=== PATIENT | male | born 1950 | race African-American/Black ===

== ENCOUNTER 2016-10-17 17:14 | Emergency (ER) | payer OTHER ==
[2016-10-17 17:19] VITALS: BP 134/65; PULSE 69; TEMP 97.9; BMI 29.5
--- NOTE | 2016-10-17 18:55 | PDOC ---
Attending Attestation - Medical Decision Making 10/20/16 09:34 I agree with the resident's assessment and plan
--- NOTE | 2016-10-17 20:21 | PDOC ---
History of Present Illness - General Chief Complaint: Injury Stated Complaint: LACERATION Time Seen by Provider: 10/17/16 17:50 History Source: Patient Exam Limitations: No Limitations - History of Present Illness Initial Comments: 10/17/16 20:23 Patient is a 65 y.o. male with a PMH of HTN who presents with a 3 finger laceration following catching his finger in a sliding truck door. 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 Patient states there is a sharp pain associated with the wound, however continued to work until 5 p.m. so he could be paid for the day. Patient denies any h/o irregular bleeding, blood clots, fever, vomiting, chest pain or shortness of breath. Past History - Past Medical History Allergies/Adverse Reactions: Allergies Allergy/AdvReac Type Severity Reaction Status Date / Time No Known Allergies Allergy Verified 10/17/16 17:19 Home Medications: Ambulatory Orders Hydrochlorothiazide [Hctz] 12.5 mg PO DAILY 04/01/12 Hydrochlorothiazide [Hctz] 25 mg PO DAILY #0 tablet 04/03/12 Lovastatin 10 mg PO HS #0 tablet 04/03/12 Metoprolol Succinate [Toprol XL -] 25 mg PO DAILY #0 tab.sr.24h 04/03/12 Metoprolol Tartrate [Lopressor -] 25 mg PO DAILY #0 tab 04/03/12 HTN: Yes - Psycho/Social/Smoking Cessation Hx Anxiety: No Suicidal Ideation: No Smoking Status: Yes Smoking History: Current every day smoker Have you smoked in the past 12 months: Yes Number of Cigarettes Smoked Daily: 10 Information on smoking cessation initiated: Yes 'Breaking Loose' booklet given: 10/17/16 Hx Alcohol Use: No Drug/Substance Use Hx: No Substance Use Type: None Hx Substance Use Treatment: No Review of Systems - Review of Systems Constitutional: No: Chills, Diaphoresis, Fever, Malaise HEENTM: No: Blurred Vision, Tinnitus, Hearing Loss, Throat Pain Respiratory: No: Cough, Orthopnea, Shortness of Breath, Wheezing, Hemoptysis Cardiac (ROS): No: Chest Pain, Edema, Lightheadedness, Palpitations ABD/GI: No: Constipated, Diarrhea, Nausea, Vomiting : No: Burning, Dysuria, Frequency, Hematuria Integumentary: No: Bruising, Change in Color, Dryness, Erythema, Pruritus, Rash Neurological: No: Headache, Numbness, Seizure, Tingling Psychiatric: No: Anxiety, Depression Hematologic/Lymphatic: No: Anemia, Blood Clots, Easy Bleeding, Easy Bruising All Other Systems: Reviewed and Negative *Physical Exam - Vital Signs Last Vital Signs Temp Pulse Resp BP Pulse Ox 97.9 F 69 19 134/65 96 10/17/16 17:17 10/17/16 17:17 10/17/16 17:17 10/17/16 17:17 10/17/16 17:17 - Physical Exam General Appearance: Yes: Nourished, Appropriately Dressed HEENT: positive: EOMI Neck: positive: Trachea midline, Supple Respiratory/Chest: positive: Lungs Clear, Normal Breath Sounds Cardiovascular: positive: Regular Rhythm, Regular Rate, S1, S2 Musculoskeletal: positive: Normal Inspection, CVA Tenderness (L) Extremity: positive: Other Integumentary: positive: Other (3 cm length x 0.75 cm width R ventral 3rd digit laceration- no appreciable discharge, odor or erythema) Neurologic: positive: olive grader II-XII NML intact, Fully Oriented, Alert Procedures - Laceration/Wound Repair Right Anterior Finger Wound Length: 2.6 to 5.0 cm Wound Explored: clean, no foreign body present Wound's Depth, Shape: superficial Irrigated w/ Saline: Yes Anesthesia: 1% Lidocaine Wound Debrided: minimal Wound Repaired With: Sutures Suture Size/Type: 3:0 Layer Closure: Yes Medical Decision Making - Medical Decision Making 10/18/16 22:27 Patient is a 65 y.o. male who presents with 3 R digit laceration. As patient's wound had been opened since the morning, wound was irrigated with 1 L of Normal Saline. 1% Lidocaine was used to locally anesthetize the area and the laceration was closed with 3 simple interrupted sutures using 3.0 nylon suture. Patient was instructed to return to the ED or visit his PCP for suture removal in 14-21 days. Patient was also instructed to return to the ED should he notice any increased erythema, purulent discharge or severe pain in the affected digit. *DC/Admit/Observation/Transfer Diagnosis at time of Disposition: Laceration - Discharge Dispostion Disposition: HOME Condition at time of disposition: Improved Admit: No - Referrals Referrals: Joe Queen MD [Primary Care Provider] - - Patient Instructions Additional Instructions: Please return to ED or visit your PCP in 14 days to have sutures removed.
== END 2016-10-17 20:41 | disposition home or self-care (01) ==
LOC: JERFT 17:14 → JER 17:14
PROC: 0HQFXZZ Repair Right Hand Skin, External Approach (ICD-10-PCS; principal; 2016-10-17)
DX: S61.214A Laceration without foreign body of right ring finger without damage to nail, initial encounter (principal); W45.8XXA Other foreign body or object entering through skin, initial encounter; Y93.89 Activity, other specified; Y92.69 Other specified industrial and construction area as the place of occurrence of the external cause; Y99.0 Civilian activity done for income or pay
CPT/HCPCS: 99281-25